=== PATIENT | male | born 1990 | race Caucasian/White ===

== ENCOUNTER → 2017-05-10 | Emergency (ER) | payer SELFPAY ==
[~2017-05-10] VITALS: Ht 162.6 cm; Wt 60.8 kg
[~2017-05-10] MED LIST: ACETAMINOPHEN-1 EAC1 PO; CEPHALEXIN500 MG PO
== END | disposition home or self-care (01) ==
LOC: ED 17:30
DX: R42 Dizziness and giddiness (principal); D72.829 Elevated white blood cell count, unspecified; F17.200 Nicotine dependence, unspecified, uncomplicated
CPT/HCPCS: 80053; 81001; 85025; 96360; 99283; J7030

== ENCOUNTER 2022-06-10 16:36 | Emergency (ER) | payer OTHER ==
[~2022-06-10] VITALS: Ht 162.6 cm; Wt 71.2 kg
--- OUTSIDE RECORDS SUMMARY | 2022-06-10 16:42 | XMS ---
PreManage Notification: NADIR ARENAS Security Internet Programmer Events No recent Security Events currently on file CRITERIA MET - Group Notification CARE PROVIDERS There are no care providers on record at this time. Jenn has no Care Guidelines for this patient. Mirtha VISIT COUNT (12 MO.) 1 VIN[facility] Becerra TOTAL 1 NOTE: Visits indicate total known visits. ED/C VISIT TRACKING (12 MO.) 06/10/2022 16:36 [facility] OR TYPE: Emergency COMPLAINT: - CHEST PAIN INPATIENT VISIT TRACKING (12 MO.) No inpatient visits to display in this time frame [email or web address]
[2022-06-10] MEDS ORDERED: AMOX TR-K CLV1 EAC1 PO (17:49)
--- NOTE | 2022-06-10 20:10 | EKG ---
[facility] [address] [facility] [place] [address] Signed Normal sinus rhythm Normal ECG No previous ECGs available Confirmed by CHICA BROOKS MD ([id number]) on 06/10/2022 8:10:41 PM Electronically Signed By: CHICA BROOKS MD 06/10/222009 PATIENT NAME: DEEPANADIR MILENA LU Electrocardiogram DATE OF : 89 PHYSICIAN: CHICA BROOKS MD REPORT #: [id number] REPORT IS CONFIDENTIAL AND NOT TO BE RELEASED WITHOUT AUTHORIZATION
[2022-06-10] MEDS ORDERED: CYCLOBENZAPRINE10 MG PO (20:47)
== END 2022-06-10 21:20 | disposition home or self-care (01) ==
LOC: ED 16:36
DX: R07.89 Other chest pain (principal); F17.200 Nicotine dependence, unspecified, uncomplicated; Z20.822 Contact with and (suspected) exposure to COVID-19; Z79.899 Other long term (current) drug therapy
CPT/HCPCS: 36415; 71045; 80053; 83735; 83880; 84484; 85025; 85379; 85610; 87502; 93005; 93010; 99406; U0003